=== PATIENT | female | born 1995 | race Caucasian/White ===

== ENCOUNTER 2017-06-02 03:19 | Emergency (ER) | payer SELFPAY ==
[~2017-06-02] VITALS: Ht 170.1 cm; Wt 113.4 kg
[2017-06-02 04:38] LABS: BASO % 0.3 % (0.0-1.0); EOS % 0.3 % (1.0-4.0); HEMOGLOBIN 11.9 g/dl (12.0-16.0); LYMPH # 0.9 10*3/uL (1.3-4.4); LYMPH % 7.2 % (27.0-41.0); MEAN CELL VOLUME 90.5 fl (81.0-99.0); MEAN CORPUSCULAR HGB 29.9 pg (27.0-31.0); MEAN CORPUSCULAR HGB CONC 33.1 g/dl (33.0-37.0); MEAN PLATELET VOLUME 8.4 fl (9.6-12.3); MONO # 0.9 10*3/uL (0.1-1.0); MONO % 7.1 % (3.0-9.0); NEUT # 10.3 10*3/uL (2.3-7.9); NEUT % 84.8 % (47.0-73.0); PLATELET COUNT AUTOMATED 306 10*3/uL (130-400); RED BLOOD COUNT 3.98 10*6/uL (4.10-5.10); WHITE BLOOD COUNT 12.2 10*3/uL (4.8-10.8)
[2017-06-02 04:50] LABS: BUN 6 mg/dl (7-24); CHLORIDE 104 mmol/L (98-107); CREATININE 0.68 mg/dL (0.55-1.02); POTASSIUM 3.5 mmol/L (3.5-5.1); SODIUM 138 mmol/L (136-145)
[2017-06-02 04:55] LABS: B-hCG (QUALITATIVE) NEGATIVE (NEGATIVE)
[2017-06-02] MEDS ORDERED: CEPHALEXIN250 MG/5 M PO (06:03)
[2017-06-02] MEDS ORDERED: NORCO 5-325 TA1 EACH PO (06:03)
[2017-06-02] MEDS ORDERED: PREDNISONE20 M1 PO (06:03)
== END 2017-06-02 06:33 | disposition home or self-care (01) ==
LOC: ED 03:19
PROVIDERS: Emergency Medicine Emergency Medical Services
DX: J03.90 Acute tonsillitis, unspecified (principal); R06.02 Shortness of breath; R05 Cough; J02.9 Acute pharyngitis, unspecified; Z88.6 Allergy status to analgesic agent; J45.909 Unspecified asthma, uncomplicated

== ENCOUNTER 2018-08-28 21:47 | Emergency (ER) | payer SELFPAY ==
[~2018-08-28] VITALS: Ht 170.1 cm; Wt 122.5 kg
--- NOTE | ~2018-08-28 | EKG ---
[place], [place] ELECTROCARDIOGRAM REPORT NAME: MONY YBARRA UNIT #: [id number] ROOM: DOCTOR: EPIPHANY DRAFT REPORT BIRTHDATE: [birth year] [facility] Test Date: 2018-08-28 Test Time: 22:51:40 Pat Name: MONY YBARRA Department: Room: Gender: F Billing Services Manager: : 1995 Requested By: MARGRET MATTHEW Order Number: [id number] Reading MD: Jude Carrizales MD Measurements Intervals [place] Rate: 70 P: 47 LA: 160 QRS: 70 QRSD: 80 T: 33 QT: 385 QTc: 416 Interpretive Statements Sinus rhythm Atrial premature complexes in couplets Electronically Signed On 09-02-2018 9:12:21 PDT by Jude Carrizales MD CM:EKGRPT:ELECTROCARDIOGRAM REPORT [id number] MARGRET MATTHEW EPIPHANY DRAFT REPORT MARGRET MATTHEW
[~2018-08-28 21:47] MED LIST: CEPHALEXIN250 MG/5 M PO; NORCO 5-325 TA1 EACH PO; PREDNISONE20 M1 PO
[2018-08-28 22:19] LABS: BASO # 0.1 10*3/uL (0.0-0.1); BASO % 0.5 % (0.0-1.0); EOS # 0.1 10*3/uL (0.0-0.4); EOS % 0.8 % (1.0-4.0); HEMATOCRIT 42.1 % (37.0-47.0); HEMOGLOBIN 13.7 g/dl (12.0-16.0); LYMPH % 18.2 % (27.0-41.0); MEAN CELL VOLUME 90.7 fl (81.0-99.0); MEAN CORPUSCULAR HGB 29.5 pg (27.0-31.0); MEAN CORPUSCULAR HGB CONC 32.5 g/dl (33.0-37.0); MONO # 0.7 10*3/uL (0.1-1.0); NEUT % 74.3 % (47.0-73.0); PLATELET COUNT AUTOMATED 408 10*3/uL (130-400); RED BLOOD COUNT 4.64 10*6/uL (4.10-5.10); RED CELL DISTRI WIDTH 12.8 % (0-14.5); WHITE BLOOD COUNT 10.8 10*3/uL (4.8-10.8)
[2018-08-28 22:39] LABS: URINE AMPHETAMINES < 1000 (1000ng/ml); URINE BARBITURATES < 200 (200ng/ml); URINE BENZODIAZEPINES < 200 (200ng/ml); URINE CANNABINOIDS (THC) < 50 (50ng/ml); URINE COCAINE < 300 (300ng/ml); URINE METHADONE < 300 (300ng/ml); URINE OPIATES < 300 (300ng/ml); URINE PHENCYCLIDINE < 25 (25ng/ml)
[2018-08-28 22:42] LABS: ALBUMIN 3.7 gm/dl (3.1-4.5); ALKALINE PHOSPHATASE 77 U/L (45-117); BUN 11 mg/dl (7-24); CHLORIDE 107 mmol/L (98-107); CREATININE 0.79 mg/dL (0.55-1.02); LIPASE 139 U/L (73-393); POTASSIUM 3.7 mmol/L (3.5-5.1); SGOT/AST 9 IU/L (3-35); SGPT/ALT 14 U/L (12-78); SODIUM 140 mmol/L (136-145); TOTAL PROTEIN 8.1 gm/dL (6.4-8.2)
[2018-08-28 22:43] LABS: BACTERIA 2+; BILIRUBIN NEGATIVE (NEGATIVE); BLOOD NEGATIVE (NEGATIVE); CLARITY CLEAR (CLEAR); COLOR YELLOW (YELLOW); GLUCOSE NEGATIVE (NEGATIVE); KETONE 1+ (NEGATIVE); LEUKO ESTERASE NEGATIVE (NEGATIVE); NITRITE NEGATIVE (NEGATIVE); PH 6.5 (5.0-9.0); RBC 0-2 rbc/hpf (0-2); UROBILINOGEN 0.2 E.U./dl (0.2-1.0)
[2018-08-29] MEDS ORDERED: SEPTDS PO (00:44)
== END 2018-08-29 00:53 | disposition home or self-care (01) ==
LOC: ED 21:47
PROVIDERS: Nurse Practitioner; Physician Assistant
DX: N39.0 Urinary tract infection, site not specified (principal); F41.9 Anxiety disorder, unspecified; E86.0 Dehydration; R07.89 Other chest pain; Z88.6 Allergy status to analgesic agent

== ENCOUNTER 2018-09-01 16:42 | Emergency (ER) | payer SELFPAY ==
[~2018-09-01] VITALS: Ht 170.1 cm; Wt 120.2 kg
--- NOTE | ~2018-09-01 | EKG ---
[place], [place] ELECTROCARDIOGRAM REPORT NAME: MONY YBARRA UNIT #: [id number] ROOM: DOCTOR: EPIPHANY DRAFT REPORT BIRTHDATE: [birth year] [facility] Test Date: 2018-09-01 Test Time: 17:50:56 Pat Name: MONY YBARRA Department: ED Room: 14 Gender: F Editor Greeting Card: Heather Wagoner : 1995 Requested By: MARIA E STOUT Order Number: [id number] Reading MD: Kady Mckeon Measurements Intervals [place] Rate: 77 P: 39 IA: 160 QRS: 50 QRSD: 76 T: 19 QT: 365 QTc: 414 Interpretive Statements Sinus rhythm Baseline wander in lead(s) II,III,aVF Electronically Signed On 09-02-2018 9:41:41 PDT by Kady Mckeon CM:EKGRPT:ELECTROCARDIOGRAM REPORT [id number] MARIA E FISHER DRAFT REPORT MARIA E ZAMARRIPA
[~2018-09-01 16:42] MED LIST changes: +SEPTDS PO
[2018-09-01 17:37] LABS: BASO % 0.6 % (0.0-1.0); EOS # 0.1 10*3/uL (0.0-0.4); HEMATOCRIT 42.8 % (37.0-47.0); LYMPH # 1.4 10*3/uL (1.3-4.4); LYMPH % 19.8 % (27.0-41.0); MEAN CELL VOLUME 89.9 fl (81.0-99.0); MEAN CORPUSCULAR HGB 29.4 pg (27.0-31.0); MEAN CORPUSCULAR HGB CONC 32.7 g/dl (33.0-37.0); MONO # 0.5 10*3/uL (0.1-1.0); MONO % 7.3 % (3.0-9.0); NEUT # 4.9 10*3/uL (2.3-7.9); PLATELET COUNT AUTOMATED 366 10*3/uL (130-400); RED BLOOD COUNT 4.76 10*6/uL (4.10-5.10); RED CELL DISTRI WIDTH 12.6 % (0-14.5); WHITE BLOOD COUNT 6.9 10*3/uL (4.8-10.8)
[2018-09-01 18:06] LABS: ACT PARTIAL THROMBO TIME 26.6 SECONDS (20.0-32.1)
[2018-09-01 18:18] LABS: ALBUMIN 3.7 gm/dl (3.1-4.5); ALKALINE PHOSPHATASE 80 U/L (45-117); BUN 8 mg/dl (7-24); CHLORIDE 109 mmol/L (98-107); CREATININE 1.02 mg/dL (0.55-1.02); LIPASE 192 U/L (73-393); POTASSIUM 3.7 mmol/L (3.5-5.1); SGOT/AST 11 IU/L (3-35); SGPT/ALT 16 U/L (12-78); SODIUM 141 mmol/L (136-145); TOTAL PROTEIN 8.2 gm/dL (6.4-8.2)
[2018-09-01 18:21] LABS: TROPONIN I < 0.015 ng/ml (<0.045)
== END 2018-09-01 20:49 | disposition home or self-care (01) ==
LOC: ED 16:42
PROVIDERS: Physician Assistant
DX: R42 Dizziness and giddiness (principal); R11.0 Nausea; F41.9 Anxiety disorder, unspecified; R07.89 Other chest pain; J45.909 Unspecified asthma, uncomplicated; Z88.6 Allergy status to analgesic agent

== ENCOUNTER 2018-10-30 15:11 | Emergency (ER) | payer SELFPAY ==
[~2018-10-30] VITALS: Ht 170.1 cm; Wt 117.9 kg
[2018-10-30 15:57] LABS: BASO % 0.3 % (0.0-1.0); EOS % 0.1 % (1.0-4.0); HEMATOCRIT 41.6 % (37.0-47.0); HEMOGLOBIN 13.5 g/dl (12.0-16.0); MEAN CELL VOLUME 90.2 fl (81.0-99.0); MEAN CORPUSCULAR HGB 29.3 pg (27.0-31.0); MEAN CORPUSCULAR HGB CONC 32.5 g/dl (33.0-37.0); MONO # 1.1 10*3/uL (0.1-1.0); MONO % 9.1 % (3.0-9.0); NEUT # 9.7 10*3/uL (2.3-7.9); NEUT % 82.3 % (47.0-73.0); PLATELET COUNT AUTOMATED 387 10*3/uL (130-400); RED BLOOD COUNT 4.61 10*6/uL (4.10-5.10); RED CELL DISTRI WIDTH 12.9 % (0-14.5); WHITE BLOOD COUNT 11.8 10*3/uL (4.8-10.8)
[2018-10-30 16:12] LABS: BUN 9 mg/dl (7-24); CHLORIDE 106 mmol/L (98-107); CREATININE 0.88 mg/dL (0.55-1.02); POTASSIUM 3.7 mmol/L (3.5-5.1); SODIUM 137 mmol/L (136-145)
[2018-10-30 17:23] LABS: BILIRUBIN NEGATIVE (NEGATIVE); BLOOD NEGATIVE (NEGATIVE); CLARITY CLEAR (CLEAR); COLOR YELLOW (YELLOW); GLUCOSE NEGATIVE (NEGATIVE); KETONE NEGATIVE (NEGATIVE); LEUKO ESTERASE NEGATIVE (NEGATIVE); NITRITE NEGATIVE (NEGATIVE); SPECIFIC GRAVITY <= 1.005 (1.005-1.030); UROBILINOGEN 0.2 E.U./dl (0.2-1.0)
== END 2018-10-30 17:58 | disposition home or self-care (01) ==
LOC: ED 15:11
PROVIDERS: Nurse Practitioner Family
DX: J40 Bronchitis, not specified as acute or chronic (principal); Z57.39 Occupational exposure to other air contaminants; Z88.5 Allergy status to narcotic agent; Z79.2 Long term (current) use of antibiotics

== ENCOUNTER → 2018-11-30 | Outpatient (CLI) | payer SELFPAY | END | disposition home or self-care (01) | LOC: CARD 08:00 | DX: R42 Dizziness and giddiness (principal) ==